=== PATIENT | male | born 1940 | race Caucasian/White ===

== ENCOUNTER 2017-08-18 20:43 | Inpatient (IN) | payer MEDICARE, OTHER ==
[~2017-08-18] VITALS: Ht 185.4 cm; Wt 88.5 kg
[~2017-08-18 20:43] MED LIST: MIDAZOLAM 1 MG/ML, 2ML ONE; PROPOFOL 10 MG/ML, 100ML IV ONE
[2017-08-18] MEDS ORDERED: SODIUM CHLORIDE FLUSH 10ML SYR IVF ONE (21:00)
[2017-08-18] MEDS ORDERED: PLEASE ENTER HEIGHT AND WEIGHT MC SCH (21:00)
[2017-08-18] MEDS ORDERED: SODIUM CHLORIDE 0.9% 1,000ML IVBOLUS ONE ×3 (21:00→22:00)
[2017-08-18] MEDS ORDERED: PLEASE ENTER ALLERGIES MC SCH (21:00)
[2017-08-18] MEDS ORDERED: ALPR2TAB2 PO (21:27)
[2017-08-18] MEDS ORDERED: QUET300T5 PO (21:27)
[2017-08-18] MEDS ORDERED: NOREPINEPHRINE 4 MG in SODIUM CHLORIDE 0.9% 246 ML IV PRN ×2 (21:30→22:00)
[2017-08-18 21:48] LABS: MEAN CORPUSCULAR HEMOGLOBIN 37.8 pg (27.5-34.5); MEAN CORPUSCULAR HGB CONC 32.7 g/dL (33.2-36.2); MEAN CORPUSCULAR VOLUME 115.8 fL (81-97); MEAN PLATELET VOLUME 11.4 fL (7.4-10.4); PLATELET COUNT 102 x10^3/uL (130-400); RED BLOOD COUNT 4.16 x10^6/uL (4.38-5.82); RED CELL DISTRIBUTION WIDTH 12.5 % (9.4-14.8)
[2017-08-18 21:56] LABS: INTERNATIONAL NORMALIZED RATIO 2.28 (0.93-1.1); PROTHROMBIN TIME 23.1 Seconds (9.6-11.5)
[2017-08-18] MEDS ORDERED: MIDAZOLAM 1 MG/ML, 5ML IVPush ONE (22:00)
[2017-08-18] MEDS ORDERED: VECURONIUM 10 MG IVPush ONE (22:00)
[2017-08-18 22:03] LABS: ALANINE AMINOTRANSFERASE 44 U/L (12-78); ALBUMIN 2.2 g/dL (3.4-5.0); ANION GAP 19 mmol/L (5-15); CALCIUM 7.2 mg/dL (8.5-10.1); CHLORIDE 131 mmol/L (98-107); CREATININE 3.42 mg/dL (0.7-1.3)
[2017-08-18 22:04] LABS: BASOPHILS # (AUTO) 0.04 x10^3/uL (0-0.1); BASOPHILS % (AUTO) 0 % (0-1); EOSINOPHILS # (AUTO) 0.01 x10^3/uL (0-0.4); EOSINOPHILS % (AUTO) 0 % (1-7); LYMPHOCYTES # (AUTO) 0.64 x10^3/uL (1-3.4); LYMPHOCYTES % (AUTO) 7 % (22-44); MD MORPH REVIEW ONLY; MONOCYTES # (AUTO) 0.42 x10^3/uL (0.2-0.8); MONOCYTES % (AUTO) 5 % (2-9); NEUTROPHILS % (AUTO) 87 % (42-75)
[2017-08-18 22:05] LABS: <PLATELET ESTIMATE> ADEQUATE; ANISOCYTOSIS 1+; LARGE PLATELETS 1+
[2017-08-18 22:07] LABS: ALKALINE PHOSPHATASE 62 U/L (45-117); BILIRUBIN,TOTAL 1.9 mg/dL (0.2-1.0); TOTAL PROTEIN 5.2 g/dL (6.4-8.2)
[2017-08-18 22:09] LABS: TROPONIN I 0.377 ng/mL (0.000-0.045)
[2017-08-18] MEDS ORDERED: DABI75CA3 PO (22:44)
[2017-08-18] MEDS ORDERED: [UNRECOGNIZED DRUG - REMARK] (22:44)
[2017-08-18] MEDS ORDERED: DOCUSATE 100 MG CAPSULE PO PRN (23:00)
[2017-08-18] MEDS ORDERED: ONDANSETRON 2MG/ML, 2ML IVPush PRN (23:00)
[2017-08-18] MEDS ORDERED: POLYETHYLENE GLYCOL 17 GM PACKET PO PRN (23:00)
[2017-08-18] MEDS ORDERED: HEPARIN 5,000 UNITS/ML, 1ML SQ SCH (23:00)
[2017-08-18] MEDS ORDERED: ACETAMINOPHEN 325 MG TABLET PO PRN (23:00)
[2017-08-18] MEDS: PROPOFOL 100 ML IV PRN (23:43)
[2017-08-19 00:59] VITALS: BP 107/65
[2017-08-19] MEDS ORDERED: VASOPRESSIN 100 UNIT in SODIUM CHLORIDE 0.9% 495 ML IV PRN (01:00)
[2017-08-19] MEDS: NOREPINEPHRINE 4 MG in SODIUM CHLORIDE 0.9% 246 ML IV PRN ×2 (01:06→03:28)
[2017-08-19] MEDS: D5%-0.45% NACL 1,000 ML IV SCH ×2 (01:07→10:13)
[2017-08-19] MEDS ORDERED: PROPOFOL 100 ML IV PRN (01:44)
[2017-08-19] MEDS ORDERED: FENTANYL PF 100 MCG/2ML IVPush PRN (02:00)
[2017-08-19] MEDS ORDERED: FAMOTIDINE 20 MG/2 ML IV SCH ×2 (02:00→21:00)
[2017-08-19] MEDS ORDERED: SENNA/DOCUSATE TABLET NG PRN (02:00)
[2017-08-19] MEDS ORDERED: SENNOSIDES 8.8 MG/5 ML ORAL SOL NG PRN (02:00)
[2017-08-19] MEDS ORDERED: PHARMACY MAY ADJ FOR RENAL FX MC SCH (02:00)
[2017-08-19] MEDS ORDERED: SODIUM CHLORIDE 0.9% 1,000ML IV SCH (02:00)
[2017-08-19] MEDS ORDERED: BISACODYL 10 MG SUPP PR PRN (02:00)
[2017-08-19] MEDS ORDERED: LACTULOSE 20 GM/30 ML UDC NG PRN (02:00)
[2017-08-19] MEDS ORDERED: LIDOCAINE-MPF 1%, 2ML ENDO PRN (02:00)
[2017-08-19 02:33] LABS: MEAN CORPUSCULAR HEMOGLOBIN 37.8 pg (27.5-34.5); MEAN CORPUSCULAR HGB CONC 32.8 g/dL (33.2-36.2); MEAN CORPUSCULAR VOLUME 115.1 fL (81-97); MEAN PLATELET VOLUME 12.1 fL (7.4-10.4); PLATELET COUNT 111 x10^3/uL (130-400); RED BLOOD COUNT 4.39 x10^6/uL (4.38-5.82); RED CELL DISTRIBUTION WIDTH 12.6 % (9.4-14.8)
[2017-08-19 02:39] LABS: ALANINE AMINOTRANSFERASE 58 U/L (12-78); ALBUMIN 2.4 g/dL (3.4-5.0); ANION GAP 19 mmol/L (5-15); CHLORIDE 131 mmol/L (98-107)
[2017-08-19 02:42] LABS: ALKALINE PHOSPHATASE 65 U/L (45-117); BILIRUBIN,TOTAL 2.1 mg/dL (0.2-1.0); CHOL/HDL RATIO 6.8; CHOLESTEROL, TOTAL 122 mg/dL (140-239); CREATININE 2.74 mg/dL (0.7-1.3); HDL CHOL % 15 % (26-37); HDL CHOLESTEROL (DIRECT) 18 mg/dL (40-60); LDL CHOLESTEROL,CALCULATED 72 mg/dL (54-169); TOTAL PROTEIN 5.5 g/dL (6.4-8.2); TRIGLYCERIDES 161 mg/dL (50-200); TROPONIN I 0.465 ng/mL (0.000-0.045); VLDL CHOLESTEROL 32 mg/dL (0-25)
[2017-08-19 02:59] LABS: BASOPHILS # (AUTO) 0.07 x10^3/uL (0-0.1); BASOPHILS % (AUTO) 0 % (0-1); EOSINOPHILS # (AUTO) 0.03 x10^3/uL (0-0.4); EOSINOPHILS % (AUTO) 0 % (1-7); LYMPHOCYTES # (AUTO) 0.69 x10^3/uL (1-3.4); LYMPHOCYTES % (AUTO) 4 % (22-44); MD SCAN; MONOCYTES # (AUTO) 1.44 x10^3/uL (0.2-0.8); MONOCYTES % (AUTO) 9 % (2-9); NEUTROPHILS # (AUTO) 14.66 x10^3/uL (1.8-6.8); NEUTROPHILS % (AUTO) 87 % (42-75)
[2017-08-19] MEDS: ALBUTEROL/IPRATROPIUM 2.5MG/0.5MG, 3 ML INLINE SCH ×6 (04:10→21:51)
[2017-08-19 04:42] VITALS: BP 113/88
[2017-08-19] MEDS ORDERED: ASPIRIN 325 MG TABLET EC PO SCH (06:00)
[2017-08-19] MEDS: NOREPINEPHRINE 8 MG in SODIUM CHLORIDE 0.9% 242 ML IV PRN ×2 (07:49→13:11)
[2017-08-19] MEDS: PROPOFOL 100 ML IV PRN ×3 (08:45→17:26)
[2017-08-19] MEDS: SENNA/DOCUSATE TABLET PO SCH (09:00)
[2017-08-19] MEDS ORDERED: DABIGATRAN 75 MG CAPSULE PO SCH (09:00)
[2017-08-19 10:42] LABS: ANION GAP 16 mmol/L (5-15); CALCIUM 7.3 mg/dL (8.5-10.1); CHLORIDE 128 mmol/L (98-107); CREATININE 2.53 mg/dL (0.7-1.3)
[2017-08-19 11:00] LABS: MICROSCOPIC INDICATED
[2017-08-19] MEDS: PANTOPRAZOLE 40 MG IV IVPush SCH (11:00)
[2017-08-19 11:01] LABS: CULTURE INDICATED? YES
[2017-08-19] MEDS: SODIUM BICARBONATE 8.4% 50 MEQ in SODIUM CHLORIDE 0.45% 1,000 ML IV SCH ×2 (11:30→20:57)
[2017-08-19] MEDS ORDERED: SODIUM CHLORIDE 0.45%, 1,000ML IVBOLUS ONE (13:00)
[2017-08-20] MEDS: morphine SULFATE 10 MG/ML, 1ML IVPush PRN (01:35)
[2017-08-20] MEDS: ALBUTEROL/IPRATROPIUM 2.5MG/0.5MG, 3 ML INLINE SCH ×2 (02:25→10:50)
[2017-08-20 03:52] VITALS: BP 91/59
[2017-08-20 04:36] LABS: MEAN CORPUSCULAR HEMOGLOBIN 38.1 pg (27.5-34.5); MEAN CORPUSCULAR HGB CONC 33.5 g/dL (33.2-36.2); MEAN CORPUSCULAR VOLUME 113.5 fL (81-97); MEAN PLATELET VOLUME 11.8 fL (7.4-10.4); PLATELET COUNT 75 x10^3/uL (130-400); RED BLOOD COUNT 3.83 x10^6/uL (4.38-5.82); RED CELL DISTRIBUTION WIDTH 12.5 % (9.4-14.8)
[2017-08-20 04:48] LABS: ALANINE AMINOTRANSFERASE 48 U/L (12-78); ALBUMIN 2.2 g/dL (3.4-5.0); ANION GAP 13 mmol/L (5-15); CALCIUM 6.8 mg/dL (8.5-10.1); CHLORIDE 126 mmol/L (98-107); CREATININE 1.55 mg/dL (0.7-1.3)
[2017-08-20 04:50] LABS: ALKALINE PHOSPHATASE 63 U/L (45-117); BILIRUBIN,TOTAL 1.8 mg/dL (0.2-1.0); TOTAL PROTEIN 4.8 g/dL (6.4-8.2)
[2017-08-20 05:08] LABS: BASOPHILS # (AUTO) 0.04 x10^3/uL (0-0.1); BASOPHILS % (AUTO) 0 % (0-1); EOSINOPHILS % (AUTO) 1 % (1-7); LYMPHOCYTES # (AUTO) 0.69 x10^3/uL (1-3.4); LYMPHOCYTES % (AUTO) 6 % (22-44); MD SCAN; MONOCYTES % (AUTO) 7 % (2-9); NEUTROPHILS # (AUTO) 9.98 x10^3/uL (1.8-6.8); NEUTROPHILS % (AUTO) 86 % (42-75)
[2017-08-20] MEDS: PROPOFOL 100 ML IV PRN (06:16)
[2017-08-20] MEDS ORDERED: POTASSIUM CHLORIDE 10% 20 MEQ/15 ML UDC ONE (07:33)
[2017-08-20] MEDS: PANTOPRAZOLE 40 MG IV IVPush SCH (07:43)
[2017-08-20] MEDS: ASPIRIN 325 MG TABLET PO SCH (07:43)
[2017-08-20] MEDS: POTASSIUM CHLORIDE 10% 40 MEQ/30 ML UDC PO SCH ×2 (07:44→19:36)
[2017-08-20] MEDS: SENNA/DOCUSATE TABLET PO SCH (07:44)
[2017-08-20] MEDS: NOREPINEPHRINE 8 MG in SODIUM CHLORIDE 0.9% 242 ML IV PRN (11:16)
[2017-08-20] MEDS: CEFTRIAXONE PMX 1GM/50ML 50 ML IV SCH (14:01)
[2017-08-20] MEDS: SODIUM BICARB 8.4%,50ML SYR. 50 MEQ in SODIUM CHLORIDE 0.45% 1,000 ML IV SCH (14:53)
[2017-08-20 15:27] LABS: INTERNATIONAL NORMALIZED RATIO 1.33 (0.93-1.1); PROTHROMBIN TIME 13.6 Seconds (9.6-11.5)
[2017-08-21] MEDS: morphine SULFATE 10 MG/ML, 1ML IVPush PRN (02:44)
[2017-08-21 04:00] VITALS: BP 106/63
[2017-08-21] MEDS: SODIUM BICARB 8.4%,50ML SYR. 50 MEQ in SODIUM CHLORIDE 0.45% 1,000 ML IV SCH (04:13)
[2017-08-21 04:36] LABS: MEAN CORPUSCULAR HEMOGLOBIN 38.3 pg (27.5-34.5); MEAN CORPUSCULAR HGB CONC 33.4 g/dL (33.2-36.2); MEAN CORPUSCULAR VOLUME 114.5 fL (81-97); RED BLOOD COUNT 3.52 x10^6/uL (4.38-5.82); RED CELL DISTRIBUTION WIDTH 12.5 % (9.4-14.8)
[2017-08-21 04:46] LABS: ANION GAP 5 mmol/L (5-15); CALCIUM 7.6 mg/dL (8.5-10.1); CHLORIDE 128 mmol/L (98-107)
[2017-08-21 04:48] LABS: CREATININE 1.05 mg/dL (0.7-1.3)
[2017-08-21 05:39] LABS: BASOPHILS % (AUTO) 0 % (0-1); EOSINOPHILS # (AUTO) 0.12 x10^3/uL (0-0.4); EOSINOPHILS % (AUTO) 1 % (1-7); LYMPHOCYTES # (AUTO) 0.49 x10^3/uL (1-3.4); LYMPHOCYTES % (AUTO) 5 % (22-44); MD SCAN; MEAN PLATELET VOLUME 12.5 fL (7.4-10.4); MONOCYTES # (AUTO) 0.88 x10^3/uL (0.2-0.8); MONOCYTES % (AUTO) 9 % (2-9); NEUTROPHILS # (AUTO) 8.16 x10^3/uL (1.8-6.8); NEUTROPHILS % (AUTO) 85 % (42-75); PLATELET COUNT 69 x10^3/uL (130-400)
[2017-08-21] MEDS: ASPIRIN 325 MG TABLET PO SCH (05:49)
[2017-08-21] MEDS ORDERED: POTASSIUM PHOSPHATE 44 MEQ in SODIUM CHLORIDE 0.9% 500 ML IV ONE (08:00)
[2017-08-21] MEDS ORDERED: SODIUM CHLORIDE 0.45% 1,000 ML IV SCH (08:30)
[2017-08-21] MEDS: SODIUM CHLORIDE 0.45% 1,000 ML IV SCH ×2 (08:44→22:49)
[2017-08-21] MEDS: PANTOPRAZOLE 40 MG IV IVPush SCH (08:44)
[2017-08-21] MEDS: DABIGATRAN 150 MG CAPSULE PO SCH ×2 (08:45→08:57)
[2017-08-21] MEDS: SENNA/DOCUSATE TABLET PO SCH (08:45)
[2017-08-21] MEDS ORDERED: KETOROLAC 30 MG/1 ML IM PRN (09:30)
[2017-08-21] MEDS: CEFTRIAXONE PMX 1GM/50ML 50 ML IV SCH (14:50)
[2017-08-21] MEDS ORDERED: DIGOXIN 0.25 MG/ML, 2ML IVPush ONE (18:00)
[2017-08-21] MEDS: DABIGATRAN 75 MG CAPSULE PO SCH (20:43)
[2017-08-22 04:00] VITALS: BP 122/53
[2017-08-22 04:48] LABS: CALCIUM 7.1 mg/dL (8.5-10.1); CHLORIDE 119 mmol/L (98-107)
[2017-08-22 04:50] LABS: MEAN CORPUSCULAR HEMOGLOBIN 38.4 pg (27.5-34.5); MEAN CORPUSCULAR HGB CONC 33.6 g/dL (33.2-36.2); MEAN CORPUSCULAR VOLUME 114.3 fL (81-97); RED BLOOD COUNT 3.36 x10^6/uL (4.38-5.82); RED CELL DISTRIBUTION WIDTH 12.2 % (9.4-14.8)
[2017-08-22 04:51] LABS: ANION GAP 6 mmol/L (5-15); CREATININE 0.61 mg/dL (0.7-1.3); TRIGLYCERIDES 114 mg/dL (50-200)
[2017-08-22 05:17] LABS: BASOPHILS # (AUTO) 0.01 x10^3/uL (0-0.1); BASOPHILS % (AUTO) 0 % (0-1); EOSINOPHILS # (AUTO) 0.11 x10^3/uL (0-0.4); EOSINOPHILS % (AUTO) 1 % (1-7); LYMPHOCYTES # (AUTO) 0.41 x10^3/uL (1-3.4); LYMPHOCYTES % (AUTO) 4 % (22-44); MD SCAN; MEAN PLATELET VOLUME 12.6 fL (7.4-10.4); MONOCYTES # (AUTO) 1.07 x10^3/uL (0.2-0.8); MONOCYTES % (AUTO) 11 % (2-9); NEUTROPHILS # (AUTO) 8.25 x10^3/uL (1.8-6.8); NEUTROPHILS % (AUTO) 84 % (42-75); PLATELET COUNT 65 x10^3/uL (130-400)
[2017-08-22] MEDS: ASPIRIN 325 MG TABLET PO SCH (05:34)
[2017-08-22] MEDS: DABIGATRAN 75 MG CAPSULE PO SCH ×2 (07:44→20:37)
[2017-08-22] MEDS: SENNA/DOCUSATE TABLET PO SCH (07:44)
[2017-08-22] MEDS: PANTOPRAZOLE 40 MG IV IVPush SCH (07:44)
[2017-08-22] MEDS ORDERED: MAGNESIUM SULFATE PMX 4GM/100M 100 ML IV ONE (10:00)
[2017-08-22] MEDS: CEFTRIAXONE PMX 1GM/50ML 50 ML IV SCH (15:20)
[2017-08-22 15:23] VITALS: BP 107/59
[2017-08-22 20:00] VITALS: BP 113/63
[2017-08-23 02:00] VITALS: BP 101/66
[2017-08-23 04:24] LABS: MEAN CORPUSCULAR HEMOGLOBIN 38.4 pg (27.5-34.5); MEAN CORPUSCULAR HGB CONC 33.6 g/dL (33.2-36.2); MEAN CORPUSCULAR VOLUME 114.3 fL (81-97); MEAN PLATELET VOLUME 11.2 fL (7.4-10.4); PLATELET COUNT 70 x10^3/uL (130-400); RED BLOOD COUNT 3.25 x10^6/uL (4.38-5.82); RED CELL DISTRIBUTION WIDTH 12.4 % (9.4-14.8)
[2017-08-23 04:29] LABS: ANION GAP 4 mmol/L (5-15); CALCIUM 7.1 mg/dL (8.5-10.1); CHLORIDE 109 mmol/L (98-107); CREATININE 0.59 mg/dL (0.7-1.3)
[2017-08-23] MEDS: ASPIRIN 325 MG TABLET PO SCH (05:26)
[2017-08-23 05:49] LABS: BASOPHILS # (AUTO) 0.07 x10^3/uL (0-0.1); BASOPHILS % (AUTO) 1 % (0-1); EOSINOPHILS # (AUTO) 0.12 x10^3/uL (0-0.4); EOSINOPHILS % (AUTO) 1 % (1-7); LYMPHOCYTES # (AUTO) 0.44 x10^3/uL (1-3.4); LYMPHOCYTES % (AUTO) 5 % (22-44); MD SCAN; MONOCYTES # (AUTO) 1.18 x10^3/uL (0.2-0.8); MONOCYTES % (AUTO) 13 % (2-9); NEUTROPHILS # (AUTO) 7.23 x10^3/uL (1.8-6.8); NEUTROPHILS % (AUTO) 80 % (42-75)
[2017-08-23 08:50] VITALS: BP 119/77
[2017-08-23] MEDS: DABIGATRAN 75 MG CAPSULE PO SCH ×2 (09:00→21:00)
[2017-08-23] MEDS ORDERED: POTASSIUM CHLORIDE 20 MEQ TAB.ER.PRT PO ONE (09:00)
[2017-08-23] MEDS: PANTOPRAZOLE 40 MG IV IVPush SCH (10:07)
[2017-08-23] MEDS: SENNA/DOCUSATE TABLET PO SCH (10:08)
[2017-08-23] MEDS: CEFTRIAXONE PMX 1GM/50ML 50 ML IV SCH (16:55)
[2017-08-23 17:28] VITALS: BP 132/76
[2017-08-23 18:22] VITALS: BP 146/89
[2017-08-24 00:27] VITALS: BP 128/75
[2017-08-24 05:12] LABS: MEAN CORPUSCULAR HEMOGLOBIN 37.6 pg (27.5-34.5); MEAN CORPUSCULAR VOLUME 114.2 fL (81-97); MEAN PLATELET VOLUME 11.2 fL (7.4-10.4); PLATELET COUNT 88 x10^3/uL (130-400); RED BLOOD COUNT 3.56 x10^6/uL (4.38-5.82); RED CELL DISTRIBUTION WIDTH 12.5 % (9.4-14.8)
[2017-08-24 05:15] LABS: CHLORIDE 101 mmol/L (98-107)
[2017-08-24 05:22] LABS: ANION GAP 7 mmol/L (5-15); CALCIUM 7.7 mg/dL (8.5-10.1); CREATININE 0.55 mg/dL (0.7-1.3)
[2017-08-24 05:51] LABS: BASOPHILS # (AUTO) 0.02 x10^3/uL (0-0.1); BASOPHILS % (AUTO) 0 % (0-1); EOSINOPHILS # (AUTO) 0.14 x10^3/uL (0-0.4); EOSINOPHILS % (AUTO) 2 % (1-7); LYMPHOCYTES % (AUTO) 6 % (22-44); MD SCAN; MONOCYTES # (AUTO) 1.17 x10^3/uL (0.2-0.8); MONOCYTES % (AUTO) 13 % (2-9); NEUTROPHILS # (AUTO) 6.99 x10^3/uL (1.8-6.8); NEUTROPHILS % (AUTO) 79 % (42-75)
[2017-08-24 08:27] VITALS: BP 120/77
[2017-08-24] MEDS ORDERED: REGADENOSON 0.4 MG/5 ML SYRINGE ONE (08:40)
[2017-08-24] MEDS: DABIGATRAN 75 MG CAPSULE PO SCH (09:00)
[2017-08-24] MEDS: ASPIRIN 325 MG TABLET PO SCH (10:34)
[2017-08-24] MEDS: PANTOPRAZOLE 40 MG IV IVPush SCH (10:34)
[2017-08-24] MEDS: SENNA/DOCUSATE TABLET PO SCH (10:34)
[2017-08-24] MEDS ORDERED: POTASSIUM CHLORIDE 20 MEQ TAB.ER.PRT PO SCH (11:00)
[2017-08-24] MEDS ORDERED: MAGNESIUM SULFATE PMX 4GM/100M 100 ML IV ONE (11:00)
[2017-08-24] MEDS ORDERED: ENOXAPARIN 80 MG/0.8 ML SQ SCH (13:00)
[2017-08-24 14:06] VITALS: BP 158/74
[2017-08-24] MEDS: ENOXAPARIN 80 MG/0.8 ML SQ SCH (15:38)
[2017-08-24] MEDS: POTASSIUM CHLORIDE 20 MEQ PACKET PO SCH (17:26)
[2017-08-24] MEDS: CEFTRIAXONE PMX 1GM/50ML 50 ML IV SCH (17:26)
[2017-08-24 19:52] VITALS: BP 113/64
[2017-08-25 00:22] VITALS: BP 124/77
[2017-08-25 05:02] LABS: BASOPHILS # (AUTO) 0.03 x10^3/uL (0-0.1); BASOPHILS % (AUTO) 0 % (0-1); EOSINOPHILS % (AUTO) 1 % (1-7); LYMPHOCYTES # (AUTO) 0.47 x10^3/uL (1-3.4); LYMPHOCYTES % (AUTO) 6 % (22-44); MD NO; MEAN CORPUSCULAR HEMOGLOBIN 38.2 pg (27.5-34.5); MEAN CORPUSCULAR VOLUME 112.3 fL (81-97); MONOCYTES # (AUTO) 1.23 x10^3/uL (0.2-0.8); MONOCYTES % (AUTO) 14 % (2-9); NEUTROPHILS # (AUTO) 6.71 x10^3/uL (1.8-6.8); NEUTROPHILS % (AUTO) 79 % (42-75); PLATELET COUNT 106 x10^3/uL (130-400); RED BLOOD COUNT 3.17 x10^6/uL (4.38-5.82); RED CELL DISTRIBUTION WIDTH 12.1 % (9.4-14.8)
[2017-08-25 05:11] LABS: ANION GAP 4 mmol/L (5-15); CALCIUM 7.2 mg/dL (8.5-10.1); CHLORIDE 100 mmol/L (98-107); TRIGLYCERIDES 109 mg/dL (50-200)
[2017-08-25] MEDS: ENOXAPARIN 80 MG/0.8 ML SQ SCH ×2 (05:37→16:43)
[2017-08-25] MEDS: ASPIRIN 325 MG TABLET PO SCH (05:38)
[2017-08-25] MEDS: PANTOPRAZOLE 40 MG IV IVPush SCH (06:44)
[2017-08-25] MEDS: SENNA/DOCUSATE TABLET PO SCH (08:33)
[2017-08-25] MEDS: POTASSIUM CHLORIDE 20 MEQ PACKET PO SCH ×2 (08:34→18:14)
[2017-08-25 09:00] VITALS: BP 115/68
[2017-08-25] MEDS ORDERED: POTASSIUM CHLORIDE 40 MEQ in SODIUM CHLORIDE 0.9% 500 ML IV ONE (11:00)
[2017-08-25] MEDS ORDERED: MAGNESIUM SULFATE PMX 2GM/50ML 50 ML IV ONE (11:00)
[2017-08-25] MEDS ORDERED: POTASSIUM PHOSPHATE 44 MEQ in SODIUM CHLORIDE 0.9% 500 ML IV ONE (11:30)
[2017-08-25] MEDS: DOXYCYCLINE 100MG TABLET PO SCH ×2 (11:46→22:11)
[2017-08-25 14:29] VITALS: BP 119/71
[2017-08-25] MEDS: CEFTRIAXONE PMX 1GM/50ML 50 ML IV SCH (18:14)
[2017-08-25 19:04] VITALS: BP 153/72
[2017-08-26 00:12] VITALS: BP 125/73
[2017-08-26] MEDS: ENOXAPARIN 80 MG/0.8 ML SQ SCH ×2 (04:12→16:25)
[2017-08-26] MEDS: ASPIRIN 81 MG TABLET CHEW PO SCH (05:06)
[2017-08-26 05:47] LABS: CHLORIDE 102 mmol/L (98-107)
[2017-08-26] MEDS ORDERED: ASPIRIN 81 MG TABLET EC PO SCH (06:00)
[2017-08-26] MEDS ORDERED: ASPIRIN 325 MG TABLET EC PO SCH (06:00)
[2017-08-26 06:10] LABS: MEAN CORPUSCULAR HEMOGLOBIN 38.7 pg (27.5-34.5); MEAN CORPUSCULAR HGB CONC 34.4 g/dL (33.2-36.2); MEAN CORPUSCULAR VOLUME 112.5 fL (81-97); MEAN PLATELET VOLUME 9.8 fL (7.4-10.4); PLATELET COUNT 121 x10^3/uL (130-400); RED CELL DISTRIBUTION WIDTH 12.1 % (9.4-14.8)
[2017-08-26 06:15] LABS: ALANINE AMINOTRANSFERASE 30 U/L (12-78); ALBUMIN 1.8 g/dL (3.4-5.0); ALKALINE PHOSPHATASE 91 U/L (45-117); ANION GAP 6 mmol/L (5-15); BILIRUBIN,TOTAL 0.5 mg/dL (0.2-1.0); CALCIUM 7.8 mg/dL (8.5-10.1); CREATININE 0.45 mg/dL (0.7-1.3); TOTAL PROTEIN 5.3 g/dL (6.4-8.2)
[2017-08-26 06:45] VITALS: BP 122/75
[2017-08-26] MEDS ORDERED: MAGNESIUM SULFATE PMX 2GM/50ML 50 ML IV ONE (07:00)
[2017-08-26] MEDS ORDERED: SODIUM PHOSPHATE 20 MMOL in SODIUM CHLORIDE 0.9% 500 ML IV ONE (07:00)
[2017-08-26 07:09] LABS: BASOPHILS % (AUTO) 0 % (0-1); EOSINOPHILS # (AUTO) 0.19 x10^3/uL (0-0.4); EOSINOPHILS % (AUTO) 3 % (1-7); LYMPHOCYTES # (AUTO) 0.54 x10^3/uL (1-3.4); LYMPHOCYTES % (AUTO) 8 % (22-44); MD SCAN; MONOCYTES # (AUTO) 0.91 x10^3/uL (0.2-0.8); MONOCYTES % (AUTO) 14 % (2-9); NEUTROPHILS # (AUTO) 4.85 x10^3/uL (1.8-6.8); NEUTROPHILS % (AUTO) 75 % (42-75)
[2017-08-26] MEDS ORDERED: SENNA 176 MG/5 ML ORAL SOL NG SCH (09:00)
[2017-08-26 09:05] LABS: HIT RESULT NEGATIVE (NEGATIVE)
[2017-08-26] MEDS: DOCUSATE 50 MG/5 ML, 10ML UDC PO SCH (10:38)
[2017-08-26] MEDS: PANTOPRAZOLE 40 MG IV IVPush SCH (10:38)
[2017-08-26] MEDS: DOXYCYCLINE 50 MG/5 ML ORAL SUSP PO SCH ×2 (10:38→21:37)
[2017-08-26 12:04] VITALS: BP 118/69
[2017-08-26] MEDS: CEFTRIAXONE PMX 1GM/50ML 50 ML IV SCH (18:25)
[2017-08-26 21:42] VITALS: BP 129/81
[2017-08-27 00:54] VITALS: BP 128/79
[2017-08-27] MEDS: ENOXAPARIN 80 MG/0.8 ML SQ SCH ×2 (04:02→16:44)
[2017-08-27] MEDS: ASPIRIN 81 MG TABLET CHEW PO SCH (04:02)
[2017-08-27 05:16] LABS: MEAN CORPUSCULAR HEMOGLOBIN 38.6 pg (27.5-34.5); MEAN CORPUSCULAR HGB CONC 34.1 g/dL (33.2-36.2); MEAN CORPUSCULAR VOLUME 113.1 fL (81-97); PLATELET COUNT 152 x10^3/uL (130-400); RED BLOOD COUNT 3.41 x10^6/uL (4.38-5.82); RED CELL DISTRIBUTION WIDTH 12.2 % (9.4-14.8)
[2017-08-27 05:21] LABS: ANION GAP 5 mmol/L (5-15); CALCIUM 8.2 mg/dL (8.5-10.1); CHLORIDE 98 mmol/L (98-107); CREATININE 0.53 mg/dL (0.7-1.3)
[2017-08-27 05:47] LABS: BASOPHILS # (AUTO) 0.01 x10^3/uL (0-0.1); BASOPHILS % (AUTO) 0 % (0-1); EOSINOPHILS # (AUTO) 0.17 x10^3/uL (0-0.4); EOSINOPHILS % (AUTO) 3 % (1-7); LYMPHOCYTES # (AUTO) 0.61 x10^3/uL (1-3.4); LYMPHOCYTES % (AUTO) 10 % (22-44); MD SCAN; MONOCYTES # (AUTO) 0.73 x10^3/uL (0.2-0.8); MONOCYTES % (AUTO) 12 % (2-9); NEUTROPHILS # (AUTO) 4.57 x10^3/uL (1.8-6.8); NEUTROPHILS % (AUTO) 75 % (42-75)
[2017-08-27 07:44] VITALS: BP 119/73
[2017-08-27] MEDS ORDERED: MAGNESIUM SULFATE PMX 4GM/100M 100 ML IV ONE (09:00)
[2017-08-27] MEDS ORDERED: POTASSIUM PHOSPHATE 22 MEQ in SODIUM CHLORIDE 0.9% 500 ML IV ONE (09:00)
[2017-08-27] MEDS: DOCUSATE 50 MG/5 ML, 10ML UDC PO SCH (09:11)
[2017-08-27] MEDS: PANTOPRAZOLE 40 MG IV IVPush SCH (09:11)
[2017-08-27] MEDS: DOXYCYCLINE 50 MG/5 ML ORAL SUSP PO SCH ×2 (09:12→20:41)
[2017-08-27] MEDS: SENNA 176 MG/5 ML ORAL SOL NG SCH (09:17)
[2017-08-27 14:46] VITALS: BP 118/81
[2017-08-27] MEDS: CEFTRIAXONE PMX 1GM/50ML 50 ML IV SCH (18:18)
[2017-08-27 19:11] VITALS: BP 135/71
[2017-08-28 00:53] VITALS: BP 124/72
[2017-08-28] MEDS: ENOXAPARIN 80 MG/0.8 ML SQ SCH ×2 (04:26→16:09)
[2017-08-28] MEDS: ASPIRIN 81 MG TABLET CHEW PO SCH (04:26)
[2017-08-28 04:53] LABS: MEAN CORPUSCULAR HGB CONC 33.6 g/dL (33.2-36.2); MEAN CORPUSCULAR VOLUME 113.1 fL (81-97); MEAN PLATELET VOLUME 9.3 fL (7.4-10.4); PLATELET COUNT 185 x10^3/uL (130-400); RED BLOOD COUNT 3.34 x10^6/uL (4.38-5.82); RED CELL DISTRIBUTION WIDTH 12.1 % (9.4-14.8)
[2017-08-28 05:24] LABS: ANION GAP 6 mmol/L (5-15); CALCIUM 8.2 mg/dL (8.5-10.1); CHLORIDE 98 mmol/L (98-107)
[2017-08-28 05:25] LABS: CREATININE 0.57 mg/dL (0.7-1.3); TRIGLYCERIDES 96 mg/dL (50-200)
[2017-08-28 05:49] LABS: BASOPHILS # (AUTO) 0.02 x10^3/uL (0-0.1); BASOPHILS % (AUTO) 0 % (0-1); EOSINOPHILS # (AUTO) 0.19 x10^3/uL (0-0.4); EOSINOPHILS % (AUTO) 3 % (1-7); LYMPHOCYTES # (AUTO) 0.73 x10^3/uL (1-3.4); LYMPHOCYTES % (AUTO) 12 % (22-44); MD SCAN; MONOCYTES % (AUTO) 13 % (2-9); NEUTROPHILS # (AUTO) 4.54 x10^3/uL (1.8-6.8); NEUTROPHILS % (AUTO) 72 % (42-75)
[2017-08-28 07:05] VITALS: BP 132/77
[2017-08-28] MEDS: DOCUSATE 50 MG/5 ML, 10ML UDC PO SCH (09:00)
[2017-08-28] MEDS: SENNA 176 MG/5 ML ORAL SOL NG SCH (09:00)
[2017-08-28] MEDS ORDERED: ERGOCALCIFEROL 50,000 UNIT CAPSULE PO SCH (09:00)
[2017-08-28] MEDS ORDERED: MULTIVITAMIN 1 TABLET PO SCH (09:00)
[2017-08-28] MEDS: PANTOPRAZOLE 40 MG IV IVPush SCH (09:31)
[2017-08-28] MEDS: DOXYCYCLINE 50 MG/5 ML ORAL SUSP PO SCH (09:31)
[2017-08-28] MEDS ORDERED: DOCU50LI12 PO (12:07)
[2017-08-28] MEDS ORDERED: ENOX80SY4 SQ (12:07)
[2017-08-28] MEDS ORDERED: MULT1TAB60 PO (12:07)
[2017-08-28] MEDS ORDERED: DOXY100T10 PO (12:07)
[2017-08-28] MEDS ORDERED: ACET325T14 PO (12:07)
[2017-08-28] MEDS ORDERED: CEFD300C37 PO (12:07)
[2017-08-28] MEDS ORDERED: ERGO500017 PO (12:07)
[2017-08-28] MEDS ORDERED: ASPI-515 PO (12:07)
[2017-08-28] MEDS ORDERED: LACT20SO13 NG (12:07)
[2017-08-28 13:45] VITALS: BP 113/73
== END 2017-08-28 17:20 | DRG 208 ==
LOC: SUATTDRO 22:24 → ED 22:55 → EDIP 23:59 → CCU 08-19 00:20 → 5SO 08-23 07:50
PROVIDERS: ADMIT Family Medicine; ATTEND Family Medicine
PROC: 5A1945Z Respiratory Ventilation, 24-96 Consecutive Hours (ICD-10-PCS; principal; 2017-08-18)
PROC: 5A12012 Performance of Cardiac Output, Single, Manual (ICD-10-PCS; 2017-08-18)
PROC: 02HV33Z Insertion of Infusion Device into Superior Vena Cava, Percutaneous Approach (ICD-10-PCS; 2017-08-18)
PROC: 0T9B70Z Drainage of Bladder with Drainage Device, Via Natural or Artificial Opening (ICD-10-PCS; 2017-08-19)
DX: J96.00 Acute respiratory failure, unspecified whether with hypoxia or hypercapnia (principal); I46.9 Cardiac arrest, cause unspecified; E43 Unspecified severe protein-calorie malnutrition; J11.00 Influenza due to unidentified influenza virus with unspecified type of pneumonia; Z99.11 Dependence on respirator [ventilator] status; D68.59 Other primary thrombophilia; N17.9 Acute kidney failure, unspecified; K85.90 Acute pancreatitis without necrosis or infection, unspecified; I07.1 Rheumatic tricuspid insufficiency; E87.0 Hyperosmolality and hypernatremia; D69.6 Thrombocytopenia, unspecified; I48.0 Paroxysmal atrial fibrillation; D53.9 Nutritional anemia, unspecified; Z88.0 Allergy status to penicillin; D75.89 Other specified diseases of blood and blood-forming organs; Z68.25 Body mass index [BMI] 25.0-25.9, adult; H70.90 Unspecified mastoiditis, unspecified ear; I10 Essential (primary) hypertension; I34.0 Nonrheumatic mitral (valve) insufficiency; T68.XXXA Hypothermia, initial encounter; I35.8 Other nonrheumatic aortic valve disorders; K59.00 Constipation, unspecified; R13.10 Dysphagia, unspecified; T50.905A Adverse effect of unspecified drugs, medicaments and biological substances, initial encounter; Z51.5 Encounter for palliative care; Z79.01 Long term (current) use of anticoagulants; Z82.49 Family history of ischemic heart disease and other diseases of the circulatory system; Z85.828 Personal history of other malignant neoplasm of skin; Z87.891 Personal history of nicotine dependence
CPT/HCPCS: 36415; 36569; 36600; 51702; 70450; 70551; 71045; 74018; 74230; 78452; 80047; 80048; 80053; 80061; 81001; 82306; 82607; 82746; 82803; 83690; 83735; 84100; 84425; 84443; 84478; 84484; 85025; 85610; 85730; 86022; 87070; 87081; 87086; 87205; 93005; 93017; 93306; 93880; 93922; 94002; 94003; 94640; 96374; 96375; J0696; J1650; J2250; J2405; J2704; J2785; J3480; J7620; A9502; C9113; C9898; J2270; J3475; J7030; J7040; J7050; S0028